=== PATIENT | female | born 1975 | race Caucasian/White ===

== ENCOUNTER 2019-08-15 01:05 | Emergency (ER) | payer OTHER ==
[~2019-08-15] VITALS: Ht 175.3 cm; Wt 56.7 kg
[2019-08-15 01:44] LABS: HEMOGLOBIN 14.1 gm/dL (12.0-15.0); NUCLEATED RBCS 0 /100WBC
[2019-08-15 01:46] LABS: ABSOLUTE EOSINOPHILS 0.2 thou/uL (0.0-0.7); ABSOLUTE LYMPHOCYTES 2.1 thou/uL (0.8-5.3); ABSOLUTE MONOCYTES 0.6 thou/uL (0.0-1.2); BASOPHILS 0.7 %; EOSINOPHILS 2.7 %; HEMATOCRIT 40.2 % (37.0-47.0); LYMPHOCYTES 35.6 %; MCH 33.9 pg (26.0-34.0); MCV 96.7 fL (80.0-100.0); MONOCYTES 9.6 %; MPV 8.2 fl. (7.2-11.1); PLATELET COUNT* 186 thou/uL (150-400); POLYS 51.4 %; RBC 4.16 mil/uL (4.20-5.00); RDW-CV 13.2 % (10.5-14.5); WBC 5.9 thou/uL (4.0-11.0)
[2019-08-15 01:49] LABS: CALCIUM 8.4 mg/dL (8.5-10.1); CREATININE 1.1 mg/dL (0.6-1.3); POTASSIUM 3.6 mmol/L (3.5-5.1)
[2019-08-15 01:50] LABS: PROTIME 10.5 Seconds (9.20-11.50)
[2019-08-15 01:53] LABS: ALBUMIN 3.9 g/dL (3.4-5.0); TOTAL BILIRUBIN 0.3 mg/dL (<0.1-1.0); TOTAL PROTEIN 6.9 g/dL (6.4-8.2)
[2019-08-15 03:13] LABS: URINE BILIRUBIN NEGATIVE (Negative); URINE BLOOD NEGATIVE (Negative); URINE CLARITY CLEAR; URINE COLOR YELLOW; URINE GLUCOSE-RANDOM NEGATIVE (Negative); URINE KETONES NEGATIVE (Negative); URINE LEUKOCYTES-REFLEX 1+ (Negative); URINE NITRITE-REFLEX NEGATIVE (Negative); URINE PROTEIN NEGATIVE (Negative); URINE SPECIFIC GRAVITY 1.025 (1.005-1.030); URINE UROBILINOGEN 0.2 E.U./dl (0.2-1.0)
[2019-08-15 03:39] LABS: BACTERIA-REFLEX >30 Many /HPF (None Seen); CASTS None Seen /LPF (None Seen); CRYSTALS None Seen /LPF (None Seen); MUCUS 0-3 Light strn/LPF (None Seen); SQUAMOUS 4-10 Moderate /LPF (0-3); TRANSITIONAL EPITHEL CELL 0-3 Few /LPF (None Seen); URINE RBC 3-10 Few /HPF (0-2)
[2019-08-15 04:02] VITALS: BP 106/43
--- NOTE | 2019-08-15 12:51 | EKG ---
[place] [address] ELECTROCARDIOGRAM REPORT Name: TED FINE Room: [facility]#: [id number] Admission: 08/15/19 Attend Phys: Discharge: 08/15/19 Date of : 75 Date of Service: 08/15/19108 Report #: [id number] THIS REPORT FOR: //name// 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
== END 2019-08-15 04:02 | disposition home or self-care (01) ==
LOC: M.ERS 01:05
PROVIDERS: Personal Emergency Response Attendant
DX: R07.89 Other chest pain (principal); K50.90 Crohn's disease, unspecified, without complications; Z88.5 Allergy status to narcotic agent; Z88.6 Allergy status to analgesic agent